=== PATIENT | male | born 1990 | race Caucasian/White ===

== ENCOUNTER 2017-11-27 10:51 | Emergency (ER) | payer OTHER ==
[2017-11-27 10:55] VITALS: BP 127/77; PULSE 67; RESP 16; TEMP 98.2; O2SAT 100; BMI 19.8
[2017-11-27] MEDS ORDERED: Absorbable Gelatin Sponge Size 12-7 TP ONE (11:28)
--- NOTE | 2017-11-27 11:50 | ED PDOC ---
Lower Extremity Pain/Injury Time Seen by Provider: 11/27/17 11:30 Chief Complaint (Nursing): Lower Extremity Problem/Injury Chief Complaint (Provider): lower extremity bleeding left leg History Per: Patient (26 y/o male h/o varicose veins here with bleeding that began at 9:30 this morning while in shower. Patient denies any injury. Note bleeding controlled with application of pressure.) Past Medical History Reviewed: Historical Data, Nursing Documentation, Vital Signs Vital Signs: Last Vital Signs Temp 98.2 F 11/27/17 10:54 Pulse 67 11/27/17 10:54 Resp 16 11/27/17 10:54 BP 127/77 11/27/17 10:54 Pulse Ox 100 11/27/17 10:54 - Family History Family History: States: No Known Family Hx - Home Medications Home Medications: Ambulatory Orders Medication Instructions Recorded No Known Home Med 11/27/17 - Allergies Allergies/Adverse Reactions: Allergies Allergy/AdvReac Type Severity Reaction Status Date / Time No Known Allergies Allergy Verified 11/27/17 11:22 Review of Systems ROS Statement: Except As Marked, All Systems Reviewed And Found Negative Musculoskeletal: Positive for: Other (bleeding from varicose vein left lateral leg) Physical Exam - Reviewed Nursing Documentation Reviewed: Yes Vital Signs Reviewed: Yes - Physical Exam Appears: Positive for: Well, Non-toxic, No Acute Distress Head Exam: Positive for: ATRAUMATIC, NORMAL INSPECTION, NORMOCEPHALIC Skin: Positive for: Normal Color, Warm, DRY Eye Exam: Positive for: EOMI, Normal appearance, PERRL ENT: Positive for: Normal ENT Inspection Neck: Positive for: Normal, Painless ROM Cardiovascular/Chest: Positive for: Regular Rate, Rhythm Respiratory: Positive for: CNT, Normal Breath Sounds Gastrointestinal/Abdominal: Positive for: Normal Exam, Soft Back: Positive for: Normal Inspection Extremity: Positive for: Normal ROM Neurologic/Psych: Positive for: Alert, Oriented - ECG O2 Sat by Pulse Oximetry: 100 - Progress ED Course And Treament: PROCEDURE GELFOAM APPLIED TO REGION OF VARICOSE VEIN PREVIOUSLY BLEEDING WITH PRESSURE DRESSING Disposition - Clinical Impression Clinical Impression: Varicose vein of leg - Patient ED Disposition Is Patient to be Admitted: No - Disposition Referrals: Beto Triplett MD [Staff Provider] - [facility] [Outside] [facility] [Outside] Disposition: Routine/Home Disposition Time: 11:53 Condition: FAIR Instructions: Varicose Veins and Other Vein Disease in the Legs Forms: [facility] ED School/Work Excuse
== END 2017-11-27 12:44 | disposition home or self-care (01) ==
LOC: H.ER 10:51
DX: I83.90 Asymptomatic varicose veins of unspecified lower extremity (principal)